=== PATIENT | male | born 1955 | race Caucasian/White ===

== ENCOUNTER 2019-07-30 23:24 | Emergency (ER) | payer MEDICARE, BC ==
[~2019-07-30] VITALS: Ht 175.3 cm; Wt 83.9 kg
--- NOTE | 2019-07-30 23:32 | NUR ---
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 PT REPORTS C/P IS SHARP IN QUALITY, RADIATED INTO THE L POSTERIOR DELTOID FOR A MOMENT, CURRENTLY 2/10 ON PAIN SCALE, INTERMITTENT. PT IS HYPERTENSIVE AND REPORTS HE HAS NOT BEEN TAKING HIS BP MEDS RECENTLY. PT DENIES SOB, N/V/D, DIZZINESS, HEADACHE.
[2019-07-30] MEDS ORDERED: ASPIRIN 81 MG TAB.CHEW PO ONE (23:45)
[2019-07-30] MEDS ORDERED: IV NORMAL SALINE 500 ML BAG IV ONE (23:45)
[2019-07-30] MEDS ORDERED: NITROGLYCERIN OINT 1 GM PACKET TP ONE ×2 (23:45→23:58)
[2019-07-30] MEDS ORDERED: NITROGLYCERIN 0.4 MG/TAB BOTTLE SL ONE (23:58)
[2019-07-30] MEDS ORDERED: ASPIRIN 81 MG TAB.CHEW ONE (23:58)
[2019-07-31] MEDS ORDERED: NITROGLYCERIN 0.4 MG/TAB BOTTLE SL ONE
[2019-07-31 00:04] LABS: BASOPHILS % (AUTO) 0.6 % (0.0-2.0); EOSINOPHILS # (AUTO) 0.1 K/uL (0.0-0.7); EOSINOPHILS % (AUTO) 1.4 % (0.0-7.0); HEMATOCRIT 46.4 % (36.7-47.1); HEMOGLOBIN 15.7 g/dL (12.5-16.3); LYMPHOCYTES # (AUTO) 2.2 K/uL (20.0-40.0); MEAN CORPUSCULAR HEMOGLOBIN 29.3 uug (23.8-33.4); MEAN CORPUSCULAR HGB CONC 34 g/dL (32.5-36.3); MEAN CORPUSCULAR VOLUME 86.4 fL (73.0-96.2); MONOCYTES # (AUTO) 0.7 K/uL (2.0-10.0); MONOCYTES % (AUTO) 8.9 % (0.0-11.0); NEUTROPHILS # (AUTO) 4.5 K/uL (1.8-8.9); NEUTROPHILS % (AUTO) 60.1 % (38.5-71.5); PLATELET COUNT (AUTO) 325 K/uL (152-348); RED BLOOD CELL COUNT(AUTO) 5.37 MIL/uL (4.06-5.63); WHITE BLOOD COUNT (AUTO) 7.5 K/uL (3.6-10.2)
[2019-07-31 00:10] LABS: CARBON DIOXIDE 28 mmol/L (21-32); CHLORIDE 104 mmol/L (98-107); CREATININE 1.1 mg/dL (0.6-1.3); GLUCOSE 108 mg/dL (74-106); POTASSIUM 3.6 mmol/L (3.5-5.1); UREA NITROGEN, BLOOD 18 mg/dL (7-18)
[2019-07-31 00:22] LABS: ALANINE AMINOTRANSFERASE 39 U/L (16-63); ALKALINE PHOSPHATASE 73 U/L (50-136); ASPARTATE AMINOTRANSFERASE 12 U/L (15-37); BILIRUBIN,DIRECT < 0.1 mg/dL (0.0-0.2); BILIRUBIN,TOTAL 0.3 mg/dL (0.2-1.0); TOTAL PROTEIN, SERUM 7.5 g/dL (6.4-8.2)
[2019-07-31] MEDS ORDERED: ACETAMINOPHEN ES 500 MG TABLET PO ONE (00:30)
[2019-07-31] MEDS ORDERED: ACETAMINOPHEN ES 500 MG TABLET ONE (00:41)
--- NOTE | 2019-07-31 00:56 | NUR ---
IV removed. Catheter intact and site benign. Pressure and 4x4 gauze applied to site. No bleeding noted.
--- NOTE | 2019-07-31 01:04 | NUR ---
Patient discharged to home in stable conditon with taking patient home. Written and verbal after care instructions given. Patient verbalizes understanding of instructions. Walked out of ER with no distress noted.
[2019-07-31 01:05] VITALS: BP 136/92
== END 2019-07-31 01:07 | disposition home or self-care (01) ==
LOC: ER 23:32
DX: R07.89 Other chest pain (principal); I10 Essential (primary) hypertension
CPT/HCPCS: 36415; 70030-TC; 71045; 85025; 93005; A4663; A9150; J7040

== ENCOUNTER 2020-06-06 20:13 | Emergency (ER) | payer BC, MEDICARE ==
--- NOTE | 2020-06-06 20:30 | NUR ---
PATIENT LEFT WITHOUT BEING SEEN BY ERMD OR TRIAGED.
== END 2020-06-06 20:41 | disposition left against medical advice (07) ==
LOC: ER 20:15
DX: Z75.3 Unavailability and inaccessibility of health-care facilities (principal)

== ENCOUNTER 2023-03-29 17:01 | Emergency (ER) | payer MEDICARE, BC ==
[~2023-03-29] VITALS: Ht 175.3 cm; Wt 86.2 kg
[2023-03-29] MEDS ORDERED: LOSA50TA39 PO (18:02)
[2023-03-29] MEDS ORDERED: OXYCODONE/APAP 5-325 MG TABLET PO ONE (18:45)
[2023-03-29 18:55] LABS: HEMATOCRIT 46.6 % (36.7-47.1); MEAN CORPUSCULAR HEMOGLOBIN 29.6 uug (23.8-33.4); MEAN CORPUSCULAR VOLUME 88.5 fL (73.0-96.2); PLATELET COUNT (AUTO) 320 K/uL (152-348)
[2023-03-29 18:57] LABS: CARBON DIOXIDE 29 mmol/L (21-32); CHLORIDE 104 mmol/L (98-107); CREATININE 1.3 mg/dL (0.6-1.3); POTASSIUM 4.2 mmol/L (3.5-5.1); UREA NITROGEN, BLOOD 18 mg/dL (7-18)
[2023-03-29 19:06] LABS: ALANINE AMINOTRANSFERASE 47 U/L (16-63); ALKALINE PHOSPHATASE 66 U/L (50-136); ASPARTATE AMINOTRANSFERASE 27 U/L (15-37); BILIRUBIN,DIRECT 0.1 mg/dL (0.0-0.2); BILIRUBIN,TOTAL 0.3 mg/dL (0.2-1.0); TOTAL PROTEIN, SERUM 7.7 g/dL (6.4-8.2)
[2023-03-29] MEDS ORDERED: OXYCODONE/APAP 5-325 MG TABLET ONE (19:13)
[2023-03-29] MEDS ORDERED: ACET1TAB23 PO (19:54)
--- NOTE | 2023-03-29 20:10 | NUR ---
ACI GIVEN, HL REMOVED, REMAINS STABLE FOR DISCHARGED.
[2023-03-29 20:11] VITALS: BP 138/87; O2SAT 98
== END 2023-03-29 20:12 | disposition home or self-care (01) ==
LOC: ER 17:13
DX: R07.89 Other chest pain (principal); K21.9 Gastro-esophageal reflux disease without esophagitis; I10 Essential (primary) hypertension; Z88.8 Allergy status to other drugs, medicaments and biological substances; Z79.899 Other long term (current) drug therapy
CPT/HCPCS: 36415; 71045; 83735; 84484; 85025; 93005; A4663